=== PATIENT | male | born 1965 | race Caucasian/White ===

== ENCOUNTER 2024-02-03 17:56 | Emergency (ER) | payer OTHER, SELFPAY ==
[2024-02-03 17:58] VITALS: BP 161/97; BMI 21.9
--- NOTE | 2024-02-03 19:48 | ED.GENMED ---
History of Present Illness
General
Chief Complaint: Flank Pain
Source: patient
Exam Limitations: none
Time Seen by Provider: 02/03/24 19:36
History of Present Illness
History of Present Illness:
58-year-old male presents with sudden onset vomiting and left flank pain starting this evening about 3 hours prior to my exam. He has a history of kidney stones and this feels similar. No fever. He takes Lyrica daily for postherpetic neuralgia
pain. He notes difficulty urinating but denies any blood in the urine. No other complaints at this time
Past History
Past History
ED Past Medical History: Other (Kidney stones)
ED Past Surgical History: Orthopedic
Social History
Tobacco: Non-smoker
Alcohol: Occasional
Drug: None
Personal:
Living: with family
Phy Exam
Physical Exam
Physical Exam:
General: Uncomfortable appearing male no acute respiratory distress
HEENT: Normocephalic atraumatic
Heart: Regular rate and rhythm no murmur
Lungs: Clear to auscultation bilaterally no wheezing
Abdomen soft tender to left costovertebral angle
Course
Orders/Labs/Results
Orders:
Orders
02/03/24 19:44
CT Abd/pel Without Iv Or Oral Urgent
Comment:
Reason For Exam: left flank pain
0.9% Sodium Chloride 1000 ml [Nss] 1,000 ml IV BOLUS
Ketorolac [Toradol] 15 mg IV NOW STA
Ondansetron Injectable [Zofran] 4 mg IV NOW STA
02/03/24 20:04
Comprehensive Metabolic Panel Urgent
02/03/24 20:05
Complete Blood Count/With Diff Urgent
02/03/24 21:45
Oxycodone/Acetaminophen [Percocet 5/325] 1 tablet PO NOW STA
02/03/24 21:55
Oxycodone/Acetaminophen [Percocet 5/325] 1 tablet PO NOW STA
02/03/24 22:12
Urinalysis Reflex To Culture Urgent
Date Specimen was Collected: 02/03/24
Time Specimen was Collected: 22:09
Urine Microscopic Reflex Cult Urgent
Abnormal Lab Results
02/03/24 02/03/24 02/03/24
20:04 20:05 22:12
RBC 4.55 L 10^6/uL
(4.70-6.10)
MCH 31.2 H pg
(27.0-31.0)
Absolute Neuts (auto) 7.8 H 10^3/uL
(1.4-6.5)
Absolute Monos (auto) 0.8 H 10^3/uL
(0.1-0.6)
Neutrophils % 77.7 H %
(42.2-75.2)
Lymphocytes % 13.0 L %
(20.5-51.1)
BUN 26 H mg/dl
(9-20)
Glucose 109 H mg/dl
(70-99)
Urine Ketones 1+ A
(Negative)
Ur Occult Blood Reflex 4+ A
(Negative)
Leukocyte Esterase Rfl Trace A
(Negative)
Urine RBC 11-15 A /HPF
(0-2)
Urine Bacteria (Reflex) Few A
(Negative)
02/03/24 20:05
02/03/24 20:04
Vital Signs
Initial and Last Documented VS:
Initial Vital Signs
Temp Pulse Resp BP Pulse Ox
97.9 F 74 18 161/97 99
02/03/24 17:58 02/03/24 17:58 02/03/24 17:58 02/03/24 17:58 02/03/24 17:58
Last Documented Vital Signs
Temp Pulse Resp BP Pulse Ox
97.9 F 74 18 131/71 97
02/03/24 17:58 02/03/24 17:58 02/03/24 17:58 02/03/24 22:21 02/03/24 22:21
MDM/Problems Addressed
Differential Diagnosis Includes:
Left flank pain. Consider renal colic versus pyelonephritis versus musculoskeletal flank pain.
He has a history of kidney stones. This may be similar. Will check for UTI to evaluate for potential for pyelonephritis. CT pending as well
Zofran Toradol fluids ordered symptoms
*Critical Care Note
Total Time (30-74mins, 75-104mins- exclusive of procedures): Not Applicable
Update Note
Update Note:
CT reviewed and demonstrates a 3 to 4 mm stone of the distal left ureter. Patient feeling improved after medication here. No waiting on urinalysis. Plan will be for discharge if urinalysis is negative.
ED Attending Note
-
Portions of this chart may have been created with voice recognition software.� Occasional wrong word or��sound alike� substitutions may have occurred due to the inherent limitations of voice recognition software.
Discharge Plan
Departure
Patient Disposition: Home (Routine Discharge)
Date of Disposition: 02/03/24
Time of Disposition: 22:47
Patient with high blood pressure during this ER visit?: Yes
Condition: Good
Covid-19: Not Applicable
Discharge Problem:
Kidney stone
Instructions: Kidney Stones (DC)
Prescriptions:
New
tamsulosin [Flomax] 0.4 mg capsule
0.4 mg PO DAILY Qty: 14 0RF
ondansetron 4 mg tablet,disintegrating
4 mg PO Q8H PRN (Reason: nausea and vomiting) Qty: 10 0RF
oxycodone-acetaminophen [Percocet] 5-325 mg tablet
1 tab PO Q8H PRN (Reason: Pain) Qty: 7 0RF
No Action
oxycodone-acetaminophen 5 MG/325 MG tablet
1 tab PO Q4HPRN PRN (Reason: pain) Qty: 13 0RF
tamsulosin 0.4 MG capsule
0.4 mg PO DAILY Qty: 7 0RF
ondansetron 4 MG tablet,disintegrating
4 mg PO TIDPRN PRN (Reason: nausea/vomiting) Qty: 9 0RF
hydrocodone-acetaminophen 5-300 mg tablet
1 tab PO Q6H PRN (Reason: Pain) Qty: 10 0RF
Referrals:
Kenton Pelayo CRNP [Family Provider] -
Activity Restrictions/Additional Instructions:
Drink plenty of fluids. Use medicine as prescribed. Strain the urine. Return here for worsening symptoms including fever vomiting increased pain otherwise follow-up with your urologist
Interventions
Interventions:
*Risk Screen - Suicide Last Done: 02/03/24 17:58
*General Assessment Last Done: 02/03/24 20:07
*Neglect/Abuse Screening Last Done: 02/03/24 17:58
ED- Fall Risk Assessment Last Done: 02/03/24 20:07
*ED COVID-19 Vaccine History Last Done: 02/03/24 20:07
*Nursing Disposition Last Done: 02/03/24 22:59
TG-Rspmkd-Fnyebsjxmo Assessment Last Done: 02/03/24 20:07
ED-Male Genitourinary Assessment Last Done: 02/03/24 20:07
Discharge Date and Time
Discharge Date/Time: 02/03/24 22:59
Print Language: MALAY
[2024-02-03] MEDS: TORADOL 15 MG IV (20:05)
[2024-02-03] MEDS: ZOFRAN 4 MG IV (20:05)
[2024-02-03] MEDS: NSS 1000 IV (20:06)
[2024-02-03 20:14] LABS: % Basophils 0.7 % (0-2); % Eosinophils 0.7 % (0-6); % Immature Granulocytes 0.3 % (0-0.5); % Monocytes 7.6 % (1.7-9.3); % Neutrophils 77.7 % (42.2-75.2); Absolute Basophils 0.1 10^3/uL (0-0.2); Absolute Eosinophils 0.1 10^3/uL (0-0.7); Absolute Lymphocytes 1.3 10^3/uL (1.2-3.4); Absolute Monocytes 0.8 10^3/uL (0.1-0.6); Absolute Neutrophils 7.8 10^3/uL (1.4-6.5); Hematocrit 39.7 % (39.0-52.0); Hemoglobin 14.2 g/dL (13.0-18.0); Mean Corp Hgb Conc. 35.8 g/dL (33.0-37.0); Mean Corpuscular Hgb 31.2 pg (27.0-31.0); Mean Corpuscular Volume 87.3 fL (80.0-94.0); Mean Platelet Volume 10.4 fL (7.4-10.4); Nucleated Red Blood Cells % 0 % (-); Platelet Count 264 10^3/uL (130-400); Red Blood Cell Count 4.55 10^6/uL (4.70-6.10); Red Cell Dist. Width 12.5 % (11.5-14.5); White Blood Cell Count 10.1 10^3/uL (4.8-10.8)
[2024-02-03 20:30] LABS: ALT (SGPT) 18 U/L (0-50); AST (SGOT) 25 U/L (17-59); Albumin 4.9 g/dl (3.5-5.0); Alkaline Phosphatase 109 U/L (38-126); Blood Urea Nitrogen 26 mg/dl (9-20); Calcium 10.2 mg/dl (8.4-10.2); Carbon Dioxide 24 mmol/L (22-30); Chloride 105 mmol/L (98-107); Estimated Creatinine Clearance 60 ml/min; Glucose 109 mg/dl (70-99); Potassium 4.8 mmol/L (3.5-5.1); Sodium 140 mmol/L (135-145); Total Bilirubin 0.6 mg/dl (0.2-1.3); eGFR > 60.00
[2024-02-03] MEDS: PERCOCET 5/325 1 TABLET PO (22:09)
[2024-02-03 22:20] LABS: Urine Albumin Negative (Neg - Trace); Urine Bilirubin Negative (Negative); Urine Character Clear (Clear); Urine Color Yellow; Urine Glucose Negative (Negative); Urine Ketone 1+ (Negative); Urine Leukocyte Trace (Negative); Urine Nitrite Negative (Negative); Urine Occult Blood 4+ (Negative); Urine Specific Gravity 1.025 (<1.030); Urine Urobilinogen Negative (Neg - 1+)
[2024-02-03 22:21] VITALS: BP 131/71
[2024-02-03 22:40] LABS: Urine Bacteria Few (Negative)
== END 2024-02-03 22:59 | disposition home or self-care (01) ==
LOC: EMR 17:56
PROVIDERS: Physician Assistant; EMERGENCY PHYSICIAN Emergency Medicine; FAMILY PHYSICIAN Nurse Practitioner Adult Health
DX: N20.0 Calculus of kidney (principal); B02.29 Other postherpetic nervous system involvement; Z87.442 Personal history of urinary calculi; Z79.899 Other long term (current) drug therapy; Z88.8 Allergy status to other drugs, medicaments and biological substances
CPT/HCPCS: 99284; 96374; 96375; 96361; 74176; 80053; 81003; 81015; 85025

== ENCOUNTER 2024-02-29 07:07 | Emergency (ER) | payer OTHER, SELFPAY ==
[2024-02-29 07:13] VITALS: BP 174/79
[2024-02-29 07:51] LABS: % Basophils 0.6 % (0-2); % Eosinophils 0.5 % (0-6); % Immature Granulocytes 0.3 % (0-0.5); % Lymphocytes 11.3 % (20.5-51.1); % Monocytes 10.6 % (1.7-9.3); % Neutrophils 76.7 % (42.2-75.2); Absolute Basophils 0.1 10^3/uL (0-0.2); Absolute Monocytes 0.9 10^3/uL (0.1-0.6); Absolute Neutrophils 6.8 10^3/uL (1.4-6.5); Hematocrit 35.7 % (39.0-52.0); Hemoglobin 12.7 g/dL (13.0-18.0); Mean Corp Hgb Conc. 35.6 g/dL (33.0-37.0); Mean Corpuscular Hgb 31.4 pg (27.0-31.0); Mean Corpuscular Volume 88.1 fL (80.0-94.0); Mean Platelet Volume 10.4 fL (7.4-10.4); Nucleated Red Blood Cells % 0 % (-); Platelet Count 220 10^3/uL (130-400); Red Blood Cell Count 4.05 10^6/uL (4.70-6.10); Red Cell Dist. Width 12.2 % (11.5-14.5); White Blood Cell Count 8.9 10^3/uL (4.8-10.8)
[2024-02-29] MEDS: NSS 1000 IV (07:51)
[2024-02-29] MEDS: TORADOL 30 MG IV (07:52)
[2024-02-29 07:54] LABS: ALT (SGPT) 14 U/L (0-50); AST (SGOT) 31 U/L (17-59); Albumin 4.4 g/dl (3.5-5.0); Alkaline Phosphatase 94 U/L (38-126); Blood Urea Nitrogen 22 mg/dl (9-20); Calcium 9.8 mg/dl (8.4-10.2); Carbon Dioxide 27 mmol/L (22-30); Chloride 102 mmol/L (98-107); Glucose 116 mg/dl (70-99); Potassium 4.3 mmol/L (3.5-5.1); Sodium 135 mmol/L (135-145); Total Bilirubin 0.7 mg/dl (0.2-1.3); Total Protein 7.2 g/dl (6.3-8.2); eGFR > 60.00
--- NOTE | 2024-02-29 08:08 | ED.GENMED ---
History of Present Illness
General
Chief Complaint: Flank Pain
Source: patient
Time Seen by Provider: 02/29/24 07:46
History of Present Illness
History of Present Illness:
58-year-old male with past medical history of kidney stones (last kidney stone 2 weeks ago and was seen here at this facility) presenting to the emergency department for evaluation of left-sided flank pain that began on Thursday similar to previous
episodes of kidney stones with patient managing pain with naproxen, oxycodone and Flomax. Pain persisted into Thursday but resolved on Thursday but began acutely worse at 2 AM without any relief despite the after mentioned medications again. Patient
on arrival here is still noting 10 out of 10 pain, left flank radiating into the left testicle associated with urinary frequency. He denies any fevers, chills, rigors, nausea, vomiting. Patient follows with urologist, Dr. Arenas. He notes that
on his last CT scan he was told he had 6 further stones within the left kidney and 4 on the right
Past History
Past History
ED Past Medical History: Other (Kidney stones)
ED Past Surgical History: Orthopedic
Social History
Tobacco: Non-smoker
Alcohol: Occasional
Drug: None
Personal:
Living: with family
Review of Systems
Review of Systems
All Other Systems: ROS reviewed and negative except as documented in HPI and ROS
Phy Exam
Physical Exam
Physical Exam:
GENERAL: Alert , appears significantly uncomfortable
EYE: clear conjunctiva
NECK: Supple
ENT: o/p clr, mmm.
CARDIAC: Regular rate and rhythm .
LUNGS: Clear breath sounds bilaterally, no acute respiratory distress, no wheezes/rales/rhonchi
ABDOMEN: Soft, without focal tenderness, no r/g, mild left CVA tenderness
NEUROLOGICAL: Alert and oriented
SKIN: Warm and dry, skin intact.
MUSCULOSKELETAL: well perfused.
PSYCH: Normal and appropriate interaction.
Scores
Heart Failure Risk
Heart Failure Risk Score: Not Applicable
Heart Score for Chest Pain Patients
STEMI patient?: Not applicable
Withdrawal Assessment of Alcohol
Withdrawal Assessment Completed?: Not applicable
Course
Orders/Labs/Results
Orders:
Orders
02/29/24 07:36
CBC/With Diff [Complete Blood Count/With Diff] Urgent
CMP [Comprehensive Metabolic Panel] Urgent
02/29/24 07:46
0.9% Sodium Chloride 1000 ml [Nss] 1,000 ml IV BOLUS
Ketorolac [Toradol] 30 mg IV NOW STA
02/29/24 07:47
CT Abd/pel Without Iv Or Oral Urgent
Comment:
Reason For Exam: left flank pain, hx of stones
Abnormal Lab Results
02/29/24
07:36
RBC 4.05 L 10^6/uL
(4.70-6.10)
Hgb 12.7 L g/dL
(13.0-18.0)
Hct 35.7 L %
(39.0-52.0)
MCH 31.4 H pg
(27.0-31.0)
Absolute Neuts (auto) 6.8 H 10^3/uL
(1.4-6.5)
Absolute Lymphs (auto) 1.0 L 10^3/uL
(1.2-3.4)
Absolute Monos (auto) 0.9 H 10^3/uL
(0.1-0.6)
Neutrophils % 76.7 H %
(42.2-75.2)
Lymphocytes % 11.3 L %
(20.5-51.1)
Monocytes % 10.6 H %
(1.7-9.3)
BUN 22 H mg/dl
(9-20)
Glucose 116 H mg/dl
(70-99)
02/29/24 07:36
08/12/24 07:36
Vital Signs
Initial and Last Documented VS:
Initial Vital Signs
Temp Pulse Resp BP Pulse Ox
97.9 F 74 18 174/79 98
02/29/24 07:13 02/29/24 07:13 02/29/24 07:13 02/29/24 07:13 02/29/24 07:13
Last Documented Vital Signs
Temp Pulse Resp BP Pulse Ox
97.9 F 56 18 115/69 97
02/29/24 07:13 02/29/24 09:38 02/29/24 07:13 02/29/24 09:38 02/29/24 09:38
MDM/Problems Addressed
Differential Diagnosis Includes:
Renal/ureteral colic, urinary tract infection, testicular torsion, epididymitis, musculoskeletal etiology
MDM/Problems Addressed:
58-year-old male presenting to the emergency department for evaluation of left flank pain radiating to the left testicle that feels similar to multiple previous episodes of kidney stone/ureteral colic. Patient seen in this emergency department 2
weeks ago and had a kidney stone. He reports it was 2 mm and passed on its own the next day. Attempted oxycodone, naproxen and has been taking his Flomax as prescribed. Did not have any relief with these medications. Appears significantly
uncomfortable on exam. 30 mg Toradol IV and IV fluids were ordered. Will reobtain CT scan. Disposition pending
Chronic conditions affecting care: Other (Kidney stones)
Acute Exacerbation and/or Progression of Chronic Illness: Other (Kidney stones)
*Radiology
Radiology exam reviewed: radiology read reviewed
*Pulse Oximetry
Patient hypoxic: no
*Critical Care Note
Total Time (30-74mins, 75-104mins- exclusive of procedures): Not Applicable
Data Reviewed
Review of Other/Old Records Reveals: Labs, Records and Radiology Studies
Source: patient, records and family
Patient Management
Discussion with other providers: Contribution Solicitor
Escalation/DeEscalation of care consider admission/obs:
Patient CT scan shows:
IMPRESSION:
1. MODERATE ACUTE LEFT HYDROURETERONEPHROSIS secondary to a 4.5 mm obstructing calculus in the distal left ureter.
2. Multiple bilateral nonobstructing intrarenal calculi.
3. Mild diffuse urinary bladder wall thickening and trabeculation suggesting chronic outlet obstruction.
4. Mild enlargement of the prostate gland.
5. Mild colonic diverticulosis.
6. Severe discogenic degenerative disease at L2/L3.
Patient informed of these findings. Given this is patient's second visit to the ER in 2 weeks I did notify on-call urology and reviewed these results. Patient can contact the office for follow-up. Aware of return precautions to the ER. New
prescriptions for naproxen and Vicodin sent to patient's pharmacy. Patient already Flomax and Zofran at home to be used.
ED Attending Note
-
Portions of this chart may have been created with voice recognition software.� Occasional wrong word or��sound alike� substitutions may have occurred due to the inherent limitations of voice recognition software.
Discharge Plan
Departure
Patient Disposition: Home (Routine Discharge)
Date of Disposition: 02/29/24
Time of Disposition: 09:07
Patient with high blood pressure during this ER visit?: Yes
Discharge Problem:
Ureterolithiasis
Instructions: Kidney Stones (DC)
Prescriptions:
New
naproxen 500 mg tablet
500 mg PO BID PRN (Reason: Pain) Qty: 15 0RF
hydrocodone-acetaminophen 5-300 mg tablet
1 tab PO BID PRN (Reason: Pain) Qty: 10 0RF
No Action
oxycodone-acetaminophen 5 MG/325 MG tablet
1 tab PO Q4HPRN PRN (Reason: pain) Qty: 13 0RF
tamsulosin 0.4 MG capsule
0.4 mg PO DAILY Qty: 7 0RF
ondansetron 4 MG tablet,disintegrating
4 mg PO TIDPRN PRN (Reason: nausea/vomiting) Qty: 9 0RF
hydrocodone-acetaminophen 5-300 mg tablet
1 tab PO Q6H PRN (Reason: Pain) Qty: 10 0RF
tamsulosin [Flomax] 0.4 mg capsule
0.4 mg PO DAILY Qty: 14 0RF
ondansetron 4 mg tablet,disintegrating
4 mg PO Q8H PRN (Reason: nausea and vomiting) Qty: 10 0RF
oxycodone-acetaminophen [Percocet] 5-325 mg tablet
1 tab PO Q8H PRN (Reason: Pain) Qty: 7 0RF
Referrals:
Kenton Pelayo CRNP [Family Provider] -
Carlos Arenas MD [Active] -
Interventions
Interventions:
*Risk Screen - Suicide Last Done: 02/29/24 07:13
*General Assessment Last Done: 02/29/24 07:13
*Neglect/Abuse Screening Last Done: 02/29/24 07:13
*Nursing Disposition Last Done: 02/29/24 09:40
FH-Lvkgen-Ohutxzmvfb Assessment Last Done: 02/29/24 09:38
ED-Male Genitourinary Assessment Last Done: 02/29/24 09:38
Discharge Date and Time
Discharge Date/Time: 02/29/24 09:42
Print Language: FRISIAN
[2024-02-29 09:38] VITALS: BP 115/69
== END 2024-02-29 09:42 | disposition home or self-care (01) ==
LOC: EMR 07:07
PROVIDERS: EMERGENCY PHYSICIAN Student in an Organized Health Care Education/Training Program; FAMILY PHYSICIAN Nurse Practitioner Adult Health
DX: N13.2 Hydronephrosis with renal and ureteral calculous obstruction (principal); N40.1 Benign prostatic hyperplasia with lower urinary tract symptoms; K57.30 Diverticulosis of large intestine without perforation or abscess without bleeding; M51.36 Other intervertebral disc degeneration, lumbar region; R03.0 Elevated blood-pressure reading, without diagnosis of hypertension; Z87.442 Personal history of urinary calculi; Z88.8 Allergy status to other drugs, medicaments and biological substances
CPT/HCPCS: 99284; 96374; 96361; 74176; 80053; 85025

== ENCOUNTER → 2024-07-26 16:24 | Outpatient (REF) | payer OTHER, SELFPAY | LOC: RAD 16:24 | PROVIDERS: ATTENDING PHYSICIAN Surgery; FAMILY PHYSICIAN Internal Medicine | DX: N20.0 Calculus of kidney (principal) | CPT/HCPCS: 74018 ==

== ENCOUNTER → 2025-07-09 06:44 | Outpatient (REF) | payer OTHER, SELFPAY | LOC: PAVMRI 06:44 | PROVIDERS: ATTENDING PHYSICIAN Specialist; FAMILY PHYSICIAN Internal Medicine | DX: M25.511 Pain in right shoulder (principal) | CPT/HCPCS: 73221 ==